=== PATIENT | female | born 1955 | race Caucasian/White ===

== ENCOUNTER → 2019-12-28 12:00 | Outpatient (CLI) | payer OTHER ==
--- NOTE | ~2019-12-28 | ST ---
PATIENT:BETH CLEMENTS MEDICAL RECORD: [id number] SEX: F LOCATION:[facility] ORDER #: ADMISSION DATE: 12/28/19 AGE OF PATIENT: 64 REFERRING PHYSICIAN: INTERPRETING PHYSICIAN: LEXA MUNOZ MD DATE OF SERVICE: 12/28/2019 PROCEDURE: Nuclear stress test. INDICATION: Angina, shortness of breath, hypertension, and hyperlipidemia. She was exercised on standard Lexiscan protocol with 33 mCi of sestamibi injected at peak stress, 10 mCi used previously for rest images. FINDINGS: Gated SPECT reveals a preserved ejection fraction at 66%. SPECT imaging Cardiolite was used as myocardial perfusion agent. There is a definite mixed perfusion defect anteriorly, apically, and laterally. This includes the basal, mid, apical anterior segments. The apex itself apical lateral, mid lateral, basal lateral segments. This is partially fixed, partially reversible. The remaining segments with homogeneous uptake at rest and stress. OVERALL IMPRESSION: This is an abnormal nuclear stress test of intermediate risk. There is a mixed perfusion defect anteriorly, apically, and laterally, possibly suggestive of multivessel hemodynamically significant coronary artery disease. TRANSINT:[id number] Voice Confirmation ID: [id number] DOCUMENT ID: [id number] LEXA MUNOZ MD CC: DESI SHAW MD [id number] DICTATION DATE: 12/29/19 1526 VETERINARY TOXICOLOGIST: 12/30/19 0202 DEP CLI 12/28/[address] [id number]
== END | disposition home or self-care (01) ==
LOC: D.HCCARDIO 12:00
PROVIDERS: ATTEND Internal Medicine Interventional Cardiology
DX: I20.9 Angina pectoris, unspecified (principal)

== ENCOUNTER → 2021-04-15 15:21 | Outpatient (CLI) | payer OTHER ==
[2020-01-09 09:30] VITALS: BMI 39.5
[~2021-04-15 15:21] MED LIST: CELEXA20 MG PO; COREG25 MG PO; CYCLOBENZAPRINE10 MG PO; ESTRACE1 MG PO; LIPITOR40 MG PO; MAXZIDE 75/501 TAB PO; NORVASC2.5 MG PO; TEMAZEPAM30 MG PO; VOLTAREN75 MG PO
== END | disposition home or self-care (01) ==
LOC: D.US 15:21
PROVIDERS: ATTEND Family Medicine
DX: M79.661 Pain in right lower leg (principal)